=== PATIENT | male | born 1965 | race African-American/Black ===

== ENCOUNTER 2017-11-04 02:37 | Observation (INO) | payer OTHER ==
[2017-11-04 03:37] LABS: CKMB 0.9 ng/mL (0-6.6); Troponin I 0.161 ng/mL (< 0.028)
[2017-11-04] MEDS ORDERED: Dexamethasone 10 MG/ML VIAL ONE (03:53)
[2017-11-04 04:29] LABS: MONO NEGATIVE CONTROL ZONE White (Negative) (White); MONO POSITIVE CONTROL Pink Line (Positive) (PINK/RED); Mononucleosis NEGATIVE (NEGATIVE)
[2017-11-04] MEDS ORDERED: Acetaminophen 325 MG TAB PO PRN ×2 (05:07→08:07)
[2017-11-04] MEDS ORDERED: HYDROcodone/Acetaminophen 5/325 mg Tablet PO PRN ×3 (05:07→08:07)
[2017-11-04] MEDS ORDERED: Ondansetron ODT 4 MG TAB SL PRN (05:07)
[2017-11-04] MEDS ORDERED: Ondansetron HCl/PF 4 MG/2 ML Vial IVP PRN (05:07)
[2017-11-04] MEDS ORDERED: Penicillin V Potassium 250 MG TAB PO SCH (06:00)
[2017-11-04] MEDS ORDERED: Nitroglycerin 2% Ointment 1 INCH/1 GM Packet TOP SCH ×2 (06:00→09:00)
[2017-11-04 06:32] LABS: Troponin I 0.156 ng/mL (< 0.028)
[2017-11-04] MEDS ORDERED: hydrALAZINE 20 MG/ML VIAL SLOW IVP PRN (07:51)
[2017-11-04] MEDS ORDERED: Ondansetron ODT 4 MG TAB PO PRN (08:07)
[2017-11-04] MEDS ORDERED: Enoxaparin Sodium 40 MG/0.4 ML SYRINGE SC SCH (08:15)
[2017-11-04 08:31] LABS: Cardiac Risk 2.3 (Less than 4.5)
[2017-11-04] MEDS ORDERED: cloNIDine 0.1 MG TAB PO SCH (09:00)
[2017-11-04] MEDS ORDERED: Famotidine 20 MG TAB PO SCH (09:00)
[2017-11-04] MEDS ORDERED: Aspirin 325 MG TAB PO SCH ×2 (09:00)
[2017-11-04] MEDS ORDERED: Hydrochlorothiazide 25 MG TAB PO SCH (09:00)
[2017-11-04] MEDS ORDERED: Enoxaparin Sodium 100 MG/ML SYRINGE SC SCH (09:00)
[2017-11-04 13:48] VITALS: BP 142/85; TEMP 99.1
[2017-11-04 14:13] LABS: Platelet Count 219 thou/uL (130-400)
[2017-11-04] MEDS ORDERED: AMOXicillin 250 MG CAP PO SCH (15:00)
--- NOTE | 2017-11-04 15:36 | NM ---
NUCLEAR MEDICINE CARDIAC STRESS TEST AND EJECTION FRACTION: HISTORY: Elevated troponins. COMPARISON: None. FINDINGS: Stress and rest are performed after the intravenous administration of 30.5 and 10 mCi Technetium 99m sestamibi, respectively. There is no evidence of scar or ischemia. Wall motion is normal. Ejection fraction is 51%. IMPRESSION: No evidence of scar or ischemia. Ejection fraction 51%. POS: [facility]
--- NOTE | 2017-11-06 08:31 | HP ---
DATE OF ADMISSION: 11/04/2017 CHIEF COMPLAINT: Sore throat. HISTORY OF PRESENT ILLNESS: Mr. Mahtis is a 52-year-old male who is a current inmate at the [facility] senior living, who was brought into the emergency department for evaluation of chest pa in and sore throat. The patient initially complained of waking up feeling short of breath and having a headache and sore throat. He was brought to the [facility] ER in [place] for evaluation. There, he was found to have i ncreased temperature, elevated blood pressure and white blood cell count, he was given ceftriaxone an d Decadron and sent here for chest pain, rule out heart problems. On arrival here, he was seen and evaluated. Vitals were stable. Repeat troponin was still elevated from 0.161 to 0.156 and we were called for admit. The patient was sent by sleeve setter and was turned over to me during the day shift for admission. He denies any fevers or chills. No chest pain. He states only he has a sore throat and headache. D enies nausea or vomiting. No GI bleeding. PAST MEDICAL HISTORY: 1. Hypertension. 2. Some kind of heart septal defect. 3. No history of known chronic kidney disease. PAST SURGICAL HISTORY: None. HOME MEDICATIONS: 1. Aspirin 81 mg daily. 2. Clonidine 0.1 mg p.o. b.i.d. 3. Hydrochlorothiazide 25 mg daily. Still question whether he supposed to be on lisinopril daily. ALLERGIES: LISINOPRIL. FAMILY HISTORY: Negative for clotting or bleeding disorder. No immune dysfunction. No known premat ure coronary artery disease. SOCIAL HISTORY: Negative for habits x3. He is currently incarcerated in the [facility] senior living. I did not ask him about the reason. Denies any history of IV drug use. Has smoked tobacco before, cu rrently is not drinking alcohol. No history of alcoholism. REVIEW OF SYSTEMS: A 10-point review of systems was performed and negative for all systems except as per HPI. PHYSICAL EXAMINATION: VITAL SIGNS: Temperature 99.1, pulse 84, blood pressure is 152/89, respiratory rate 16, satting 96% on room air. GENERAL: He is awake. He is alert. He is oriented x3. He is a well-developed, well-nourished, mus cular male, appears to be in no acute distress. HEENT: Normocephalic, atraumatic. Pupils equal, round, react to light bilaterally. Mucous membrane s moist. No visible lesions. No thrush. He does have increased erythema and tonsil enlargement wit h a small amount of mucopurulent exudate. He has both anterior and posterior cervical adenopathy [place] aterally. NECK: Supple. There is no thyromegaly. LUNGS: Clear, no wheezes, no rales, no rhonchi. Good air movement. Symmetrical chest excursion. CARDIOVASCULAR: Normal S1, S2. I do not appreciate S3 or S4. I cannot hear any murmurs. ABDOMEN: Soft, nontender, and nondistended. No mass or organomegaly. EXTREMITIES: No cyanosis, no clubbing with trace pedal edema. SKIN: Warm, moist, and well perfused. He has no other rashes or lesions. MUSCULOSKELETAL: Exam is normal to inspection. He has got good muscle tone. He has got normal larg e joints that appear uninflamed and no palpable effusions. NEUROLOGIC: Cranial nerves II-XII grossly intact. No focal neurologic deficits. LABORATORY DATA: Sodium 138, potassium 3.1, chloride 97, bicarbonate 25, BUN 14, creatinine 1.58, gl ucose 113. Liver function within normal limits. CBC showed a white count of 21.7, hemoglobin is 12.9, hematocri t of 38.7, and platelets 223,000. He has got % granulocytes. Total CK was 39. CK-MB was initially 1.1 and then 0.9. Initial troponin was 0.161, 0.156, and 0.173 . Person screen is negative. Urinalysis negative. Chest x-ray showed mild cardiomegaly. ASSESSMENT AND PLAN: 1. Chest pain: The patient was sent here for this purpose. Troponins are mildly elevated at 0.161, 0.156, and 0.173. He has no EKG changes. Does have an elevated creatinine and chronic kidney disea se which could contribute. He is not having symptoms. We will get a nuclear stress test and a 2D ec hocardiogram. 2. Acute infectious pharyngitis. Also strep is a consideration. He was given amp of penicillin G i n the emergency department. We will continue amoxicillin 500 mg p.o. t.i.d. when he is not n.p.o. 3. We will make him n.p.o. in anticipation of testing. 4. Probable chronic obstructive pulmonary disease. Creatinine is 1.58. BUN to creatinine ratio is not elevated. He does have increased muscle mass where the general population could be contributing to his increased creatinine. 5. Hypertension: Fairly well controlled. Place him on nitro paste until he goes for a stress test. We will continue the home medications otherwise.
--- NOTE | 2017-11-06 14:18 | DIS ---
DATE OF ADMISSION: 11/04/2017 DATE OF DISCHARGE: 11/04/2017 PRIMARY CARE PHYSICIAN: None. He is currently incarcerated [facility]. DISCHARGE DIAGNOSES: 1. Noncardiac chest pain. 2. Acute infective pharyngitis. 3. Chronic kidney disease stage 3. 4. Elevated troponin. 5. Hypertension. CONSULTATIONS: None. PROCEDURES: 1. 2D echocardiogram showed an EF 50%-55%, moderate to severe concentric LVH. 2. Nuclear stress test 11/04/2017 that showed no scar or reversibility defect and EF of 51%. HISTORY AND PHYSICAL: Mr. Mathis is a 52-year-old male currently incarcerated at [facility] and brought to [facility] ER for evaluation of shortness of breath and headache and chest disco mfort. The patient states he awoke on the middle of the night with headache and shortness of breath. He was evaluated in the [facility] and sent to the [facility] ER for evaluation. There he had a troponin of 0.161 what looks like acute infectious pharyngitis, white count of 21,000 and elevated, but still not in the range of fever temperature. He was subsequently transferred here. He was given ceftriaxone and Decadron. Repeat biomarker still shows a troponin to be 0.156. The pat ient had no chest pain at that point and was subsequently called for admission. The patient was accepted by the risk and insurance consultant early in the morning and transferred to the floor. I am s eeing him for admission. No nausea, vomiting, or diaphoresis. No night sweats. Denies any fevers o r chills or rigors. Has had a sore throat but denies any other symptoms. PAST MEDICAL HISTORY: 1. Hypertension. 2. Septal defect. 3. Probable CKD, stage 3. HOME MEDICATIONS: 1. Clonidine 0.1 mg p.o. b.i.d. 2. Hydrochlorothiazide 25 daily. HOSPITAL COURSE: The patient was seen and examined by me on the floor. History was corroborated. A 2D echocardiogram was ordered to assess his current cardiac function and evaluation of this possible septal defect and a nuclear stress test was ordered to evaluate his cardiac perfusion. Patient was sent for both these testing. His echo showed an EF of 50%-55% and some LVH, but no menti on of septal defect or diastolic dysfunction. His stress test revealed no reversibility defects or s carring. The patient was feeling better. He was continued on oral antibiotics with amoxicillin and discharged back to the snf. PHYSICAL EXAMINATION: The patient was seen and examined on the day of discharge. Discharge plan and disposition were discussed with the patient face to face at the bedside. DISCHARGE MEDICATIONS: 1. Hydrochlorothiazide 25 mg daily. 2. Amoxicillin 500 mg p.o. t.i.d. for 10 days. 3. Aspirin 81 mg daily. DISCHARGE CONDITION: Stable. DISPOSITION: Discharged to the [facility] in custody of the [facility] deputy. ACTIVITY: As tolerated. DISCHARGE CONDITION: Stable. DISCHARGE DIET: Heart healthy, low sodium diet. FOLLOWUP APPOINTMENTS: With the [facility] physician next available.
--- NOTE | 2017-11-09 14:39 | EKG ---
Test Reason : NSTEMI Blood Pressure : / mmHG Vent. Rate : 079 BPM Atrial Rate : 079 BPM P-R Int : 170 ms QRS Dur : 110 ms QT Int : 378 ms P-R-T Axes : 038 -40 129 degrees QTc Int : 433 ms Normal sinus rhythm Possible Left atrial enlargement Left axis deviation Incomplete right bundle branch block Left ventricular hypertrophy T wave abnormality, consider lateral ischemia Abnormal ECG Confirmed by MICHELLE HINES, LAINA Ribeiro ([id number]), story editor ROSALINDA DOWNEY ([id number]) on 11/09/2017 2:38:18 PM Referred By: Confirmed By:LAINA MARTINEZ MD
== END 2017-11-04 16:06 | disposition home or self-care (01) ==
LOC: ERS 02:37 → EEVIPCON 02:37 → 2SW 03:10
PROVIDERS: ADMIT Family Medicine; ATTEND Family Medicine
DX: R07.89 Other chest pain (principal); J02.9 Acute pharyngitis, unspecified; I12.9 Hypertensive chronic kidney disease with stage 1 through stage 4 chronic kidney disease, or unspecified chronic kidney disease; N18.3 Chronic kidney disease, stage 3 (moderate); R79.89 Other specified abnormal findings of blood chemistry; Z79.82 Long term (current) use of aspirin; Z79.899 Other long term (current) drug therapy; Z88.8 Allergy status to other drugs, medicaments and biological substances
CPT/HCPCS: 36415; 78452; 80061; 82553; 82565; 84484; 85014; 85018; 85049; 86308; 93005; 93017; 93306; 96372; 96374; A9500; G0378; J0696; J1100; J1650